=== PATIENT | male | born 1980 | race Two or more races ===

== ENCOUNTER 2024-06-28 10:01 | Inpatient (IN) | payer OTHER ==
[~2024-06-28] VITALS: Ht 180.3 cm; Wt 95.3 kg
--- NOTE | 2024-06-28 10:51 | NUR ---
SE RECIBE PACIENTE ALERTA Y ORIENTADO X3 EL CUAL REFIERE VENIR A CAUSA DE DOLOR EN AREA DE PIE DERECHO. EL MISMO REFIERE QUE INICIO TRATAMIENTO ESA QUE AL MOMENTO NO MCGEE TENIDO MEJORIA.
[2024-06-28 14:34] LABS: HEMATOCRIT 38.1 % (39.0-48.0); HEMOGLOBIN 12.9 g/dL (13-16.00); MEAN CELL VOLUME 77.9 fL (80.0-100.00); MEAN CORPUSCULAR HEMOGLOBIN 26.4 pg (27.00-32.0); MEAN CORPUSCULAR HGB CONC 33.9 g/dl (32.0-36.0); PLATELET COUNT 300 K/uL (150-450); RED BLOOD COUNT 4.89 M/uL (4.00-6.00); RED CELL DISTRIBUTION WIDTH 14.2 % (11.5-14.5)
[2024-06-28 14:36] LABS: ERYTHROCYTE SEDIMENTATION RATE > 130 mm/hr
--- NOTE | 2024-06-28 14:45 | NUR ---
SE ORIENTA A PACIENTE SOBRE TRATAMIENTO MEDICO QUIEN INDICA ENTENDER Y ACEPTAR. SE COLECTAN MUESTRAS DE LABORATORIO BAJO MEDIDAS ASEPTICAS Y SE REALIZA VENOPUNCION EN BRAZO MANUELCHO CON ANGIO #18 PATENTE LAURI DE EDEMA, PACIENTE PENDIENTE A CTSCAN
[2024-06-28 14:54] LABS: ALBUMIN 2.7 gm/dL (3.4-5.0); BILIRUBIN TOTAL 0.97 mg/dL (0.3-1.2); CREATININE SERUM 0.87 mg/dL (0.70-1.30); GFR 95.33; GLOBULINA 5.4 G/DL (2.4-3.5); POTASSIUM 3.66 mEq/L (3.5-5.1); TOTAL PROTEIN 8.1 gm/dL (6.4-8.2)
[2024-06-28] MEDS ORDERED: CEFTRIAXONE SODIUM 2,000 MG VIAL IV ONE (15:45)
[2024-06-28] MEDS ORDERED: VANCOMYCIN HCL 1,000 MG VIAL IV ONE (15:45)
--- NOTE | 2024-06-28 16:06 | NUR ---
SE EDUCA A PTE SOBRE [place] MEDICO, SE ADMINISTRAN MEDICAMENTOS HAMLET ORDEN MEDICA.
[2024-06-28] MEDS ORDERED: 0.9 % SODIUM CHLORIDE 1,000 ML IV SCH (21:45)
[2024-06-28] MEDS ORDERED: ENALAPRILAT DIHYDRATE 1.25 MG/ML VIAL IV PRN (22:00)
[2024-06-28] MEDS ORDERED: KETOROLAC TROMETHAMINE 30 MG VIAL IV PRN (22:00)
[2024-06-28] MEDS ORDERED: ACETAMINOPHEN 500 MG GEL..CAP PO PRN (22:00)
[2024-06-29] MEDS ORDERED: PIPERACILLIN/TAZOBACTAM SODIUM 3.375 GM in 0.9 % SODIUM CHLORIDE 100 ML IV SCH
[2024-06-29] MEDS ORDERED: CLINDAMYCIN PHOSPHATE 900 MG in 0.9 % SODIUM CHLORIDE 100 ML IV SCH (01:00)
[2024-06-29 01:26] VITALS: BP 168/80
[2024-06-29 01:48] LABS: PH,URINE 5.5 (5.0-8.0); URINE APPEARANCE Clear; URINE BILIRRUBIN Negative (NEGATIVE); URINE BLOOD Negative; URINE COLOR Yellow; URINE LEUKOCYTE Negative; URINE NITRATE Negative
[2024-06-29 01:54] LABS: URINE BACTERIA 29.3 uL (0.0-1933); URINE EPITHELIAL CELLS 7.9 uL (0.0-38.8); URINE RBC 7.6 uL (0.0-20.8); URINE WBC 8.2 uL (0.0-23.2)
[2024-06-29 02:01] LABS: URINE CAST 0.58 uL (0.0-1.40); URINE GLUCOSE >=1000 MG/DL (NEGATIVE); URINE KETONE 80 (NEGATIVE); URINE PROTEIN 100 (NEGATIVE)
[2024-06-29 07:48] VITALS: BP 182/81; O2SAT 97
[2024-06-29] MEDS ORDERED: LINEZOLID IN DEXTROSE 5% 300 ML IV SCH (09:00)
[2024-06-29] MEDS ORDERED: ENOXAPARIN SODIUM 40 MG/0.4 ML SYRINGE SUBCUTANEO SCH (09:00)
[2024-06-29] MEDS ORDERED: FAMOTIDINE/PF 20 MG/2 ML VIAL IV SCH (12:00)
[2024-06-29 16:49] LABS: HEMATOCRIT 33.5 % (39.0-48.0); HEMOGLOBIN 11.3 g/dL (13-16.00); MEAN CELL VOLUME 77.4 fL (80.0-100.00); MEAN CORPUSCULAR HEMOGLOBIN 26.1 pg (27.00-32.0); MEAN CORPUSCULAR HGB CONC 33.7 g/dl (32.0-36.0); PLATELET COUNT 281 K/uL (150-450); RED BLOOD COUNT 4.32 M/uL (4.00-6.00); RED CELL DISTRIBUTION WIDTH 13.8 % (11.5-14.5)
[2024-06-29 17:00] VITALS: BP 178/76
[2024-06-29] MEDS ORDERED: LACTOBACILLUS ACIDOPHILUS 1 CAP CAP PO SCH (17:00)
[2024-06-29 17:15] LABS: INR 1.13; PARTIAL THROMBOPLASTIN TIME 30.2 SECONDS (22.0-34.0); PROTHROMBIN TIME 12.2 SECONDS (9.0-11.5)
[2024-06-29 18:42] LABS: ALBUMIN 2.3 gm/dL (3.4-5.0); BILIRUBIN TOTAL 1.43 mg/dL (0.3-1.2); BILIRUBIN,CONJUGATED 0.99 mg/dL (0.0-0.2); BILIRUBIN,UNCONJUGATED 0.44 mg/dL (0.0-0.6); CALCIUM 7.7 mg/dL (8.5-10.1); CREATININE SERUM 0.63 mg/dL (0.70-1.30); GFR 138.35; POTASSIUM 3.72 mEq/L (3.5-5.1); TOTAL PROTEIN 6.3 gm/dL (6.4-8.2); TSH 1.2 uIU/mL (0.358-3.74)
[2024-06-30 00:31] VITALS: BP 160/80; O2SAT 96
[2024-06-30] MEDS ORDERED: CHLORHEXIDINE GLUCONATE 120 ML BOTTLE TOP SCH (09:00)
[2024-06-30] MEDS ORDERED: AMLODIPINE BESYLATE 2.5 MG TABLET PO SCH (09:26)
[2024-06-30 17:49] VITALS: BP 160/67
[2024-07-01 02:34] VITALS: BP 184/97; O2SAT 97
[2024-07-01 05:26] LABS: HEMATOCRIT 33.5 % (39.0-48.0); MEAN CELL VOLUME 78.5 fL (80.0-100.00); MEAN CORPUSCULAR HEMOGLOBIN 26.2 pg (27.00-32.0); MEAN CORPUSCULAR HGB CONC 33.5 g/dl (32.0-36.0); PLATELET COUNT 296 K/uL (150-450); RED BLOOD COUNT 4.27 M/uL (4.00-6.00); RED CELL DISTRIBUTION WIDTH 13.9 % (11.5-14.5)
[2024-07-01 05:27] LABS: HEMOGLOBIN 11.2 g/dL (13-16.00)
[2024-07-01 05:43] LABS: CALCIUM 8.1 mg/dL (8.5-10.1); CREATININE SERUM 0.71 mg/dL (0.70-1.30); GFR 120.52; POTASSIUM 4.41 mEq/L (3.5-5.1)
[2024-07-01] MEDS ORDERED: AMLODIPINE BESYLATE 5 MG TABLET PO SCH (09:00)
[2024-07-01 09:41] VITALS: BP 177/84; O2SAT 98
[2024-07-01] MEDS ORDERED: KETOROLAC TROMETHAMINE 30 MG VIAL IV SCH (17:00)
[2024-07-01] MEDS ORDERED: METRONIDAZOLE/SODIUM CHLORIDE 500 MG/100 ML PIGGYBACK IV SCH (17:00)
[2024-07-01] MEDS ORDERED: LOSARTAN POTASSIUM 25 MG TABLET PO SCH (17:00)
[2024-07-01] MEDS ORDERED: CEFEPIME HCL 2,000 MG VIAL IV SCH (17:00)
[2024-07-01] MEDS ORDERED: CIPROFLOXACIN IN 5 % DEXTROSE 400 MG/200 ML PIGGYBAG IV SCH (17:00)
[2024-07-01 19:21] VITALS: BP 182/83
[2024-07-01] MEDS ORDERED: FAMOtidine 20 MG TABLET PO SCH (21:00)
[2024-07-01] MEDS ORDERED: LINEZOLID 600 MG TABLET PO SCH (21:00)
[2024-07-02 01:53] VITALS: BP 170/90; O2SAT 97
[2024-07-02] MEDS ORDERED: DEXTROSE 50 % IN WATER 0.5 G/ML DISP.SYRIN IV PRN (07:45)
[2024-07-02] MEDS ORDERED: INSULIN LISPRO 1,000 UNIT/10 ML UNITS SUBCUTANEO PRN (07:45)
[2024-07-02 08:46] VITALS: BP 164/82; O2SAT 98
[2024-07-02] MEDS ORDERED: INSULIN GLARGINE,HUM.REC.ANLOG 1,000 UNITS/10 ML UNITS SUBCUTANEO SCH (09:00)
[2024-07-02 16:49] VITALS: BP 180/90; O2SAT 100
[2024-07-02] MEDS ORDERED: LOSARTAN POTASSIUM 50 MG TABLET PO SCH (17:00)
[2024-07-02 19:41] LABS: ALBUMIN 2.4 gm/dL (3.4-5.0); BILIRUBIN TOTAL 1.31 mg/dL (0.3-1.2); CALCIUM 8.1 mg/dL (8.5-10.1); CREATININE SERUM 0.73 mg/dL (0.70-1.30); GFR 116.72; POTASSIUM 3.98 mEq/L (3.5-5.1); TOTAL PROTEIN 7.4 gm/dL (6.4-8.2)
[2024-07-03 00:57] VITALS: BP 186/84; O2SAT 99
[2024-07-03 05:38] LABS: HEMATOCRIT 35.8 % (39.0-48.0); HEMOGLOBIN 11.9 g/dL (13-16.00); MEAN CELL VOLUME 78.4 fL (80.0-100.00); MEAN CORPUSCULAR HEMOGLOBIN 26.1 pg (27.00-32.0); MEAN CORPUSCULAR HGB CONC 33.3 g/dl (32.0-36.0); PLATELET COUNT 388 K/uL (150-450); RED BLOOD COUNT 4.56 M/uL (4.00-6.00); RED CELL DISTRIBUTION WIDTH 13.9 % (11.5-14.5)
[2024-07-03] MEDS ORDERED: HYDROCHLOROTHIAZIDE 50 MG TABLET PO SCH (09:00)
[2024-07-03] MEDS ORDERED: AMLODIPINE BESYLATE 10 MG TABLET PO SCH (09:00)
[2024-07-03 09:23] VITALS: BP 165/87; O2SAT 99
[2024-07-03] MEDS ORDERED: HYDROCHLOROTHIAZIDE 25 MG TABLET PO NR (09:30)
[2024-07-03 16:09] VITALS: BP 189/90; O2SAT 97
[2024-07-03] MEDS ORDERED: CIPROFLOXACIN HCL 500 MG TABLET PO SCH (17:00)
[2024-07-03] MEDS ORDERED: METROnidazole 500 MG TABLET PO SCH (17:00)
[2024-07-03] MEDS ORDERED: INSULIN GLARGINE,HUM.REC.ANLOG 1,000 UNITS/10 ML UNITS SUBCUTANEO SCH (21:00)
[2024-07-04 00:57] VITALS: BP 175/95; O2SAT 100
[2024-07-04] MEDS ORDERED: INDAPAMIDE 1.25 MG TABLET PO SCH (09:00)
[2024-07-04] MEDS ORDERED: HYDROCHLOROTHIAZIDE 25 MG TABLET PO SCH (09:00)
[2024-07-04 09:44] VITALS: BP 170/90; O2SAT 99
[2024-07-04] MEDS ORDERED: INSULIN LISPRO 1,000 UNIT/10 ML UNITS SUBCUTANEO SCH (12:00)
[2024-07-04 14:41] LABS: CALCIUM 8.3 mg/dL (8.5-10.1); CREATININE SERUM 0.72 mg/dL (0.70-1.30); GFR 118.59; POTASSIUM 4.11 mEq/L (3.5-5.1)
[2024-07-04] MEDS ORDERED: LOSARTAN POTASSIUM 100 MG TABLET PO SCH (17:00)
[2024-07-04 17:02] VITALS: BP 199/94
[2024-07-04 18:15] VITALS: BP 158/83
[2024-07-04] MEDS ORDERED: INSULIN GLARGINE,HUM.REC.ANLOG 1,000 UNITS/10 ML UNITS SUBCUTANEO SCH (21:00)
[2024-07-05 01:13] VITALS: BP 152/70; O2SAT 100
[2024-07-05 07:26] LABS: HEMATOCRIT 36.7 % (39.0-48.0); MEAN CELL VOLUME 79.2 fL (80.0-100.00); MEAN CORPUSCULAR HGB CONC 32.8 g/dl (32.0-36.0); PLATELET COUNT 494 K/uL (150-450); RED BLOOD COUNT 4.64 M/uL (4.00-6.00)
[2024-07-05 08:52] VITALS: BP 160/90; O2SAT 99
[2024-07-05 17:13] VITALS: BP 97/67
[2024-07-06 01:12] VITALS: BP 168/83; O2SAT 97
[2024-07-06 07:42] VITALS: BP 141/84
[2024-07-06] MEDS ORDERED: INSULIN LISPRO 1,000 UNIT/10 ML UNITS SUBCUTANEO SCH (08:00)
[2024-07-06] MEDS ORDERED: INSULIN GLARGINE,HUM.REC.ANLOG 1,000 UNITS/10 ML UNITS SUBCUTANEO SCH (09:00)
[2024-07-06 16:54] VITALS: BP 166/83
[2024-07-07 00:32] VITALS: BP 170/86; O2SAT 97
[2024-07-07 05:10] LABS: INR 1.09; PROTHROMBIN TIME 11.8 SECONDS (9.0-11.5)
[2024-07-07] MEDS ORDERED: BUPIVACAINE HCL/MPF 0.5% 30ML VIAL ONE (16:02)
[2024-07-07] MEDS ORDERED: LIDOCAINE HCL 1%/EPINEPHRINE 20ML VIAL IJ ONE (16:02)
[2024-07-07] MEDS ORDERED: MORPHINE SULFATE 4 MG/ML CARTRIDGE IV PRN (22:00)
[2024-07-07 22:06] VITALS: BP 184/71
[2024-07-08 00:49] VITALS: BP 145/79; O2SAT 94
[2024-07-08 08:30] VITALS: BP 155/84; O2SAT 97
[2024-07-08 17:37] VITALS: BP 180/80
[2024-07-09 01:03] VITALS: BP 137/76
[2024-07-09 08:36] VITALS: BP 158/80; BP 169/93; O2SAT 99
[2024-07-09] MEDS ORDERED: AMPICILLIN SODIUM/SULBACTAM NA 3,000 MG in 0.9 % SODIUM CHLORIDE 100 ML IV SCH (17:00)
[2024-07-09 17:32] VITALS: BP 160/89; O2SAT 100
[2024-07-10 01:13] VITALS: BP 162/99; O2SAT 98
[2024-07-10 08:18] VITALS: BP 118/75
[2024-07-10 19:01] VITALS: BP 140/81
[2024-07-11 00:42] VITALS: BP 148/79; O2SAT 94
[2024-07-11 07:17] LABS: HEMOGLOBIN 12.2 g/dL (13-16.00); MEAN CELL VOLUME 78.8 fL (80.0-100.00); MEAN CORPUSCULAR HEMOGLOBIN 26.7 pg (27.00-32.0); MEAN CORPUSCULAR HGB CONC 33.9 g/dl (32.0-36.0); PLATELET COUNT 450 K/uL (150-450); RED BLOOD COUNT 4.57 M/uL (4.00-6.00)
[2024-07-11 07:51] LABS: ERYTHROCYTE SEDIMENTATION RATE > 130 mm/hr
[2024-07-11] MEDS ORDERED: INSULIN LISPRO 1,000 UNIT/10 ML UNITS SUBCUTANEO SCH (08:00)
[2024-07-11 09:03] VITALS: BP 146/81
[2024-07-11 16:57] VITALS: BP 123/65; BP 146/84; O2SAT 96; O2SAT 98
[2024-07-12 01:49] VITALS: BP 155/87; O2SAT 97
[2024-07-12] MEDS ORDERED: INSULIN LISPRO 1,000 UNIT/10 ML UNITS SUBCUTANEO SCH ×2 (08:00→17:00)
[2024-07-12 08:58] VITALS: BP 139/86
[2024-07-12] MEDS ORDERED: INSULIN GLARGINE,HUM.REC.ANLOG 1,000 UNITS/10 ML UNITS SUBCUTANEO SCH (09:00)
[2024-07-12 17:38] VITALS: BP 150/85; O2SAT 99
[2024-07-13 00:36] VITALS: BP 123/80; O2SAT 96
[2024-07-13 06:48] LABS: HEMATOCRIT 35.8 % (39.0-48.0); HEMOGLOBIN 11.9 g/dL (13-16.00); MEAN CELL VOLUME 80.2 fL (80.0-100.00); MEAN CORPUSCULAR HEMOGLOBIN 26.7 pg (27.00-32.0); MEAN CORPUSCULAR HGB CONC 33.3 g/dl (32.0-36.0); PLATELET COUNT 380 K/uL (150-450); RED BLOOD COUNT 4.47 M/uL (4.00-6.00); RED CELL DISTRIBUTION WIDTH 15.3 % (11.5-14.5)
[2024-07-13 07:41] LABS: ALBUMIN 2.7 gm/dL (3.4-5.0); BILIRUBIN TOTAL 0.56 mg/dL (0.3-1.2); CALCIUM 8.3 mg/dL (8.5-10.1); CREATININE SERUM 0.66 mg/dL (0.70-1.30); GFR 131.12; GLOBULINA 4.2 G/DL (2.4-3.5); POTASSIUM 4.02 mEq/L (3.5-5.1); TOTAL PROTEIN 6.9 gm/dL (6.4-8.2)
[2024-07-13] MEDS ORDERED: INSULIN LISPRO 1,000 UNIT/10 ML UNITS SUBCUTANEO SCH ×2 (08:00→12:00)
[2024-07-13 08:06] VITALS: BP 134/79
[2024-07-13 16:59] VITALS: BP 140/85; O2SAT 100
[2024-07-13 19:32] LABS: AMYLASE 65 U/L (25-115); LIPASE 23 U/L (13-75)
[2024-07-14] VITALS: BP 170/98; O2SAT 99
[2024-07-14 02:00] VITALS: BP 145/78; O2SAT 99
[2024-07-14 06:46] LABS: ALBUMIN 2.7 gm/dL (3.4-5.0); BILIRUBIN TOTAL 0.48 mg/dL (0.3-1.2); CALCIUM 9.1 mg/dL (8.5-10.1); CREATININE SERUM 0.65 mg/dL (0.70-1.30); GFR 133.45; GLOBULINA 4.1 G/DL (2.4-3.5); POTASSIUM 4.6 mEq/L (3.5-5.1); TOTAL PROTEIN 6.8 gm/dL (6.4-8.2)
[2024-07-14 08:12] VITALS: BP 159/90
[2024-07-14 16:22] VITALS: BP 145/78; O2SAT 97
[2024-07-14] MEDS ORDERED: INSULIN LISPRO 1,000 UNIT/10 ML UNITS SUBCUTANEO SCH (17:00)
[2024-07-14] MEDS ORDERED: INSULIN GLARGINE,HUM.REC.ANLOG 1,000 UNITS/10 ML UNITS SUBCUTANEO SCH (21:00)
[2024-07-15 02:46] VITALS: BP 152/82; O2SAT 96
[2024-07-15 06:01] LABS: ALBUMIN 2.7 gm/dL (3.4-5.0); BILIRUBIN TOTAL 0.62 mg/dL (0.3-1.2); BILIRUBIN,CONJUGATED 0.31 mg/dL (0.0-0.2); BILIRUBIN,UNCONJUGATED 0.31 mg/dL (0.0-0.6); TOTAL PROTEIN 6.7 gm/dL (6.4-8.2)
[2024-07-15 09:03] VITALS: BP 145/82
[2024-07-15] MEDS ORDERED: INSULIN LISPRO 1,000 UNIT/10 ML UNITS SUBCUTANEO SCH (12:00)
[2024-07-15] MEDS ORDERED: AMPICILLIN SODIUM/SULBACTAM NA 3,000 MG VIAL ONE (16:14)
[2024-07-15 17:02] VITALS: BP 146/81; O2SAT 97
[2024-07-16 01:00] VITALS: BP 147/82; O2SAT 97
[2024-07-16 07:39] LABS: HEMATOCRIT 34.8 % (39.0-48.0); HEMOGLOBIN 11.6 g/dL (13-16.00); MEAN CELL VOLUME 80.4 fL (80.0-100.00); MEAN CORPUSCULAR HEMOGLOBIN 26.9 pg (27.00-32.0); MEAN CORPUSCULAR HGB CONC 33.5 g/dl (32.0-36.0); PLATELET COUNT 330 K/uL (150-450); RED BLOOD COUNT 4.32 M/uL (4.00-6.00); RED CELL DISTRIBUTION WIDTH 15.3 % (11.5-14.5)
[2024-07-16 07:43] LABS: ALBUMIN 2.6 gm/dL (3.4-5.0); BILIRUBIN TOTAL 0.54 mg/dL (0.3-1.2); CALCIUM 8.5 mg/dL (8.5-10.1); CREATININE SERUM 0.65 mg/dL (0.70-1.30); GFR 133.45; GLOBULINA 4.2 G/DL (2.4-3.5); POTASSIUM 4.33 mEq/L (3.5-5.1); TOTAL PROTEIN 6.8 gm/dL (6.4-8.2)
[2024-07-16 08:46] VITALS: BP 150/82
[2024-07-16] MEDS ORDERED: AMPICILLIN SODIUM/SULBACTAM NA 3,000 MG VIAL ONE (16:30)
[2024-07-16 18:04] VITALS: BP 144/77
[2024-07-16] MEDS ORDERED: INSULIN GLARGINE,HUM.REC.ANLOG 1,000 UNITS/10 ML UNITS SUBCUTANEO SCH (21:00)
[2024-07-17 02:32] VITALS: BP 145/85; O2SAT 97
[2024-07-17 11:01] VITALS: BP 106/52
[2024-07-17] MEDS ORDERED: AMPICILLIN SODIUM/SULBACTAM NA 3,000 MG VIAL ONE (16:29)
[2024-07-17 18:42] VITALS: BP 142/88
[2024-07-18 01:20] VITALS: BP 131/80; O2SAT 96
[2024-07-18 08:21] VITALS: BP 149/84; O2SAT 96
[2024-07-18 17:47] VITALS: BP 151/88
[2024-07-18] MEDS ORDERED: INSULIN GLARGINE,HUM.REC.ANLOG 1,000 UNITS/10 ML UNITS SUBCUTANEO SCH (21:00)
[2024-07-19 01:47] VITALS: BP 158/85; O2SAT 98
[2024-07-19 08:24] VITALS: BP 148/84; O2SAT 96
[2024-07-19] MEDS ORDERED: INSULIN LISPRO 1,000 UNIT/10 ML UNITS SUBCUTANEO SCH ×2 (12:00→17:00)
[2024-07-19 17:50] VITALS: BP 151/87
[2024-07-20 01:43] VITALS: BP 137/78; O2SAT 96
[2024-07-20] MEDS ORDERED: INSULIN LISPRO 1,000 UNIT/10 ML UNITS SUBCUTANEO SCH ×2 (08:00→17:00)
[2024-07-20 08:51] VITALS: BP 128/79; O2SAT 96
[2024-07-20] MEDS ORDERED: INSULIN GLARGINE,HUM.REC.ANLOG 1,000 UNITS/10 ML UNITS SUBCUTANEO SCH (09:00)
[2024-07-20 18:14] VITALS: BP 179/82
[2024-07-21 01:09] VITALS: BP 122/73
[2024-07-21 08:45] LABS: HEMOGLOBIN 12.4 g/dL (13-16.00); MEAN CORPUSCULAR HEMOGLOBIN 27.1 pg (27.00-32.0); MEAN CORPUSCULAR HGB CONC 33.5 g/dl (32.0-36.0); PLATELET COUNT 268 K/uL (150-450); RED BLOOD COUNT 4.57 M/uL (4.00-6.00); RED CELL DISTRIBUTION WIDTH 16.3 % (11.5-14.5)
[2024-07-21 08:57] VITALS: BP 154/86
[2024-07-21 09:20] LABS: ALBUMIN 2.8 gm/dL (3.4-5.0); BILIRUBIN TOTAL 0.6 mg/dL (0.3-1.2); CREATININE SERUM 0.74 mg/dL (0.70-1.30); GFR 114.9; GLOBULINA 4.1 G/DL (2.4-3.5); POTASSIUM 4.82 mEq/L (3.5-5.1); TOTAL PROTEIN 6.9 gm/dL (6.4-8.2)
[2024-07-21 17:00] VITALS: BP 140/70
== END 2024-07-21 19:42 | disposition home or self-care (01) | DRG 580 ==
LOC: ER 10:04 → MEDI 21:45
PROVIDERS: General Practice; Internal Medicine Infectious Disease; Preventive Medicine Public Health & General Preventive Medicine; Student in an Organized Health Care Education/Training Program; ADMIT Internal Medicine; ATTEND Internal Medicine
PROC: BQ2HZZZ Computerized Tomography (CT Scan) of Left Ankle (ICD-10-PCS; 2024-06-28)
PROC: B54DZZZ Ultrasonography of Bilateral Lower Extremity Veins (ICD-10-PCS; 2024-06-28)
PROC: 0JBQ3ZZ Excision of Right Foot Subcutaneous Tissue and Fascia, Percutaneous Approach (ICD-10-PCS; principal; 2024-06-29)
PROC: B44HZZZ Ultrasonography of Bilateral Lower Extremity Arteries (ICD-10-PCS; 2024-06-29)
PROC: BQ3LZZZ Magnetic Resonance Imaging (MRI) of Right Foot (ICD-10-PCS; 2024-06-30)
PROC: BT4JZZZ Ultrasonography of Kidneys and Bladder (ICD-10-PCS; 2024-07-03)
PROC: 0SBP0ZZ Excision of Right Toe Phalangeal Joint, Open Approach (ICD-10-PCS; 2024-07-07)
PROC: 0J9Q0ZZ Drainage of Right Foot Subcutaneous Tissue and Fascia, Open Approach (ICD-10-PCS; 2024-07-07)
PROC: 3E10X8Z Irrigation of Skin and Mucous Membranes using Irrigating Substance (ICD-10-PCS; 2024-07-07)
PROC: BW40ZZZ Ultrasonography of Abdomen (ICD-10-PCS; 2024-07-13)
DX: L03.115 Cellulitis of right lower limb (principal); L02.611 Cutaneous abscess of right foot; L97.518 Non-pressure chronic ulcer of other part of right foot with other specified severity; E11.51 Type 2 diabetes mellitus with diabetic peripheral angiopathy without gangrene; E11.628 Type 2 diabetes mellitus with other skin complications; B96.1 Klebsiella pneumoniae [K. pneumoniae] as the cause of diseases classified elsewhere; B95.61 Methicillin susceptible Staphylococcus aureus infection as the cause of diseases classified elsewhere; B96.5 Pseudomonas (aeruginosa) (mallei) (pseudomallei) as the cause of diseases classified elsewhere; Z79.4 Long term (current) use of insulin; E11.65 Type 2 diabetes mellitus with hyperglycemia; E11.621 Type 2 diabetes mellitus with foot ulcer; L08.89 Other specified local infections of the skin and subcutaneous tissue; M79.89 Other specified soft tissue disorders
CPT/HCPCS: 73725